=== PATIENT | male | born 1970 | race Caucasian/White ===

== ENCOUNTER 2018-09-15 22:44 | Emergency (ER) | payer MEDICARE, MEDICAID ==
[~2018-09-15] VITALS: Ht 180.3 cm; Wt 99.8 kg
[2018-09-15] MEDS ORDERED: HYDRALAZINE 2525 MG PO (22:52)
[2018-09-15] MEDS ORDERED: CRESTOR40 MG PO (22:52)
[2018-09-15] MEDS ORDERED: FUROSEMIDE 80 M80 M1 PO (22:52)
[2018-09-15] MEDS ORDERED: LABETALOL HCL300 MG PO (22:52)
[2018-09-15] MEDS ORDERED: ESCITALOPRAM OX20 MG PO (22:53)
[2018-09-15] MEDS ORDERED: AMLODIPINE BESY10 MG PO (22:53)
[2018-09-15] MEDS ORDERED: PROTONIX40 M1 PO (22:53)
[2018-09-15] MEDS ORDERED: COZAAR 25 MG TA25 M1 PO (22:54)
[2018-09-15] MEDS ORDERED: LO-DOSE ASPIRIN81 M1 PO (22:54)
[2018-09-15] MEDS ORDERED: NEURONTIN 300300 M1 PO (22:54)
[2018-09-15] MEDS ORDERED: IMDUR 60 MG TAB60 M1 PO (22:54)
[2018-09-15] MEDS ORDERED: RENAL CAPS SOFTG1 MG PO (22:55)
[2018-09-15] MEDS ORDERED: AURYXIA (22:56)
== END 2018-09-15 23:04 ==
LOC: M.ERS 22:44
DX: I46.9 Cardiac arrest, cause unspecified (principal); I10 Essential (primary) hypertension; I42.9 Cardiomyopathy, unspecified; Z87.891 Personal history of nicotine dependence